=== PATIENT | male | born 1970 | race Caucasian/White ===

== ENCOUNTER 2021-12-17 10:34 | Outpatient (CLI) | payer OTHER | END 2021-12-17 10:35 | disposition home or self-care (01) | LOC: CSHLAB 10:34 | PROVIDERS: ATTEND Internal Medicine Gastroenterology | DX: Z20.822 Contact with and (suspected) exposure to COVID-19 (principal) | CPT/HCPCS: 87811 ==

== ENCOUNTER 2021-12-20 07:10 | Day surgery (SDC) | payer OTHER ==
[2021-12-18 15:46] VITALS: BMI 21.4
[~2021-12-20 07:10] MED LIST: Lidocaine 2% MPF 10 ML AMP (For Epidural Use) ONE; PROPOFOL 60 ML ONE
[2021-12-20] MEDS ORDERED: Ondansetron PF 4 MG/2 ML Vial ONE (08:41)
== END 2021-12-20 10:46 | disposition home or self-care (01) ==
LOC: CSHSDC 07:10
PROVIDERS: ATTEND Internal Medicine Gastroenterology
PROC: 0DBN8ZX Excision of Sigmoid Colon, Via Natural or Artificial Opening Endoscopic, Diagnostic (ICD-10-PCS; principal; 2021-12-20)
PROC: 0DBN8ZZ Excision of Sigmoid Colon, Via Natural or Artificial Opening Endoscopic (ICD-10-PCS; principal; 2021-12-20)
DX: Z12.11 Encounter for screening for malignant neoplasm of colon (principal); K63.5 Polyp of colon; K63.89 Other specified diseases of intestine; K64.9 Unspecified hemorrhoids; E78.5 Hyperlipidemia, unspecified; R97.20 Elevated prostate specific antigen [PSA]; J30.9 Allergic rhinitis, unspecified; Z87.891 Personal history of nicotine dependence; Z20.822 Contact with and (suspected) exposure to COVID-19; Z79.899 Other long term (current) drug therapy
CPT/HCPCS: 88305; J2405; J2704